=== PATIENT | male | born 1940 | race Caucasian/White ===

== ENCOUNTER 2024-06-14 05:50 | Outpatient (REF) | payer MEDICARE, SELFPAY ==
[2024-06-14 05:57] LABS: MANUAL DIFF FLAG NO
--- OUTSIDE RECORDS SUMMARY | 2024-06-14 06:05 | XMS_ITS | Encounter Summary ---
Author Organization [facility] Address [address] [place] [address] Care Team Providers Care Ear Nose Throat Physician Name Role Phone Demetria Dickinson MD Primary Care Provider Encounter Details Date Type Department Care Team (Late st Contact Info) Description 06/10/2024 Lab Requisition [facility] - Main Lab [address] [facility] [place] [address] Garima Haddad MD [address] [address] Pneumonia, unspecified organism; Urinary tract infection, site not specified Social History Tobacco Use Types Packs/Day Years Used Date Smoking Tobacco: Former Cigarettes Q uit: 03/10/1963 Smokeless Tobacco: Never Alcohol Use Standard Drinks/Week Comments Not Currently 0 (1 standard drink = 0.6 oz pur e alcohol) Sex and Gender Information Value Date Recorded Sex Assigned at Not on file Legal Sex Male 3:30 AM EST Gender Identity Not on file Sexual Orientation Not on file documented as of this encounter Plan of Treatment Not on file documented as of this encounter Procedures Procedure Name Priority Date/Time Associated Diagnosis Comments COMPLETE BLOOD COUNT Routine 06/10/2024 6:45 AM EDT Pneumonia, unspecified organism Urinary tract infection, site not specified BASIC METABOLIC PANEL Routine 06/10/2024 6:45 AM EDT Pneumonia, unspecified organism Urinary tract infection, site not specified documented in this encounter Results * (ABNORMAL) Basic metabolic panel (06/10/2024 6:45 AM EDT) Sodium 145 133 - 145 mmol/L LAB CHEMISTRY METHOD 06/10/2024 9:15 AM [facility] Potassium 4.3 3.5 - 5.5 mmol/L LAB CHEMISTRY METHOD 06/10/2024 9:15 AM [facility] Chloride 110 96 - 110 mmol/L LAB CHEMISTRY METHOD 06/10/2024 9:15 AM [facility] CO2 29 21 - 32 mmol/L LAB CHEMISTRY METHOD 06/10/2024 9:15 AM [facility] Anion Gap 6 3 - 11 LAB CHEMISTRY METHOD 06/10/2024 9:15 AM [facility] Glucose 83 70 - 100 mg/dL LAB CHEMISTRY METHOD 06/10/2024 9:15 AM [facility] BUN 27(H) 5 - 25 mg/dL LAB CHEMISTRY METHOD 06/10/2024 9:15 AM [facility] Creatinine 1.41(H) 0.70 - 1.30 mg/dL LAB CHEMISTRY METHOD 06/10/2024 9:15 AM [facility] eGFR 49(L) >=60 mL/min/1. 73m2 LAB CHEMISTRY METHOD 06/10/2024 9:15 AM [facility] Comment:Calculation based on the??Chronic Kidney Disease Epidemiology Collaboration (CKD-EPI) equation refit??without adjustment for race. BUN/Creatinine Ratio 19.1 LAB CHEMISTRY METHOD 06/10/2024 9:15 AM [facility] Calcium 8.8 8.5 - 10.5 mg/dL LAB CHEMISTRY METHOD 06/10/2024 9:15 AM [facility] Blood Venous blood specimen / Unknown Venipuncture / Unknown 06/10/2024 6:45 AM EDT 06/10/2024 8:26 AM EDT Garima Haddad MD LAB BLOOD ORDERABLES Fin al Result [facility] [address] [place] [address], * (ABNORMAL) Complete blood count (06/10/2024 6:45 AM EDT) WBC 9.7 4.8 - 10.8 K/mcL LAB HEMETOLOGY METHOD 06/10/2024 8:49 AM EDT [facility] RBC 3.90(L) 4.50 - 5.50 M/mcL LAB HEMETOLOGY METHOD 06/10/2024 8:49 AM EDT [facility] Hemoglobin 12.0(L) 13.5 - 17.5 g/dL LAB [facility] Hematocrit 37.6(L) 42.0 - 54.0 % LAB HEMETOLOGY METHOD 06/10/2024 8:49 AM EDT [facility] MCV 95.9 79.0 - 98.0 FL LAB HEMETOLOGY METHOD 06/10/2024 8:49 AM EDT [facility] MCH 30.6 27.0 - 32.0 pcg LAB HEMETOLOGY METHOD 06/10/2024 8:49 AM EDT [facility] MCHC 31.9(L) 32.0 - 37.0 g/dL LAB HEMETOLOGY METHOD 06/10/2024 8:49 AM EDT [facility] RDW 14.1 11.0 - 15.0 % LAB HEMETOLOGY METHOD 06/10/2024 8:49 AM EDT [facility] Platelets 350 130 - 400 K/mcL LAB [facility] MPV 10.3 7.0 - 11.0 FL LAB HEMETOLOGY METHOD 06/10/2024 8:49 AM EDT [facility] NRBC 0.0 <1.0 % LAB HEMETOLOGY METHOD 06/10/2024 8:49 AM EDT [facility] NRBC Absolute 0.00 <0.10 K/mcL LAB HEMETOLOGY METHOD 06/10/2024 8:49 AM EDT [facility] Blood Venous blood specimen / Unknown Venipuncture / Unknown 06/10/2024 6:45 AM EDT 06/10/2024 8:26 AM EDT us Garima Haddad MD LAB BLOOD ORDERABLES Fin al Result [facility] [address] [place] [address], documented in this encounter Visit Diagnoses Diagnosis Pneumonia, unspecified organism Urinary tract infection, site not specified documented in this encounter Care Teams Ear Nose Throat Physician Relationship Specialty Start Date End Date Demetria Dickinson MD [address] [place] [id number] PCP - General Internal Medicine 05/07/21 documented as of this encounter
--- OUTSIDE RECORDS SUMMARY | 2024-06-14 06:05 | XMS_ITS | Encounter Summary ---
Author Organization [facility] Address [address] [place] [phone] Care Team Providers Care Him Tech Name Role Phone Demetria Dickinson MD Primary Care Provider Encounter Details Date Type Department Care Team (Late st Contact Info) Description 06/12/[address] [facility] - Main Lab [address] [facility] [place] [address] Garima Haddad MD [address] [address] Urinary tract infection, site not specified Social [...] as of this encounter Plan of Treatment Scheduled Orders Name Type Priority Associated Diagnoses Orde r Schedule Complete blood count Lab Routine Urinary tract infection, site not specified Ordered: 06/12/2024 Basic metabolic panel Lab Routine Urinary tract infection, site not specified Ordered: 06/12/2024 documented as of this encounter Visit Diagnoses Diagnosis Urinary tract infection, site not specified documented in this encounter Care Teams Him Tech Relationship Specialty Start Date End Date Demetria Dickinson MD [address] [place] [address] [address] [place], [place] [id number] PCP - General Internal Medicine 05/07/21 documented as of this encounter
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
[2024-06-14 06:49] LABS: Basophils Absolute Auto 0.1 X10*3/uL (0.0-0.2); Eosinophils Absolute Auto 0.6 X10*3/uL (0.0-0.4); Eosinophils Percent Auto 6.3 % (0-4); Hematocrit 39.2 % (42.0-52.0); Hemoglobin 12.7 g/dl (14.0-18.0); Imm Gran Abs Auto 0.06 X10*3/uL (0.00-0.03); Imm Gran Pct Auto 0.7 % (0.0-0.4); Lymphocytes Absolute Auto 1.2 X10*3/uL (1.2-4.9); Lymphocytes Percent Auto 13.3 % (20-40); Mean Corpuscular HGB Conc 32.4 g/dl (31.0-36.0); Mean Corpuscular Volume 92.5 fL (80.0-98.0); Mean Platelet Volume 10.4 fL (9.4-12.4); Monocytes Absolute Auto 1.2 X10*3/uL (0.1-1.2); Monocytes Percent Auto 13.9 % (2-11); Neutrophils Absolute Auto 5.7 x10*3/uL (2.0-8.3); Neutrophils Percent Auto 64.8 % (45-73); Platelet Count 315 X10*3/uL (160-400); Red Blood Count 4.24 X10*6/uL (4.60-5.80); White Blood Count 8.8 X10*3/uL (4.8-10.8)
[2024-06-14 06:53] LABS: Alanine Aminotransferase < 6 U/L (0-40); Albumin Level 3.1 g/dL (3.5-5.0); Alkaline Phosphatase 97 U/L (39-117); Anion Gap 12 (12-20); Aspartate Amino Transferase 26 U/L (5-37); Bilirubin Total 0.8 mg/dL (0.0-1.0); Blood Urea Nitrogen 21 mg/dL (9-16); Calcium 8.3 mg/dL (8.4-10.2); Carbon Dioxide 23 mmol/L (22-29); Chloride 111 mmol/L (96-108); Estimated Glomerular Filt Rate 48; Glucose Random 73 mg/dL (60-115); Potassium 3.4 mmol/L (3.3-5.1); Sodium 143 mmol/L (135-145); Total Protein 6.2 g/dL (6.5-8.0)
== END 2024-06-14 05:51 | disposition home or self-care (01) ==
LOC: HO.MMNH1L 05:50
PROVIDERS: Visit Provider Family Medicine
DX: I10 Essential (primary) hypertension (principal)
CPT/HCPCS: 36415; 80053; 85025

== ENCOUNTER 2024-06-21 05:44 | Outpatient (REF) | payer MEDICARE, SELFPAY ==
[2024-06-21 05:37] LABS: MANUAL DIFF FLAG NO
--- OUTSIDE RECORDS SUMMARY | 2024-06-21 05:51 | XMS_ITS | Clinical Summary ---
Author Organization [address] Address [address] [place] [phone] Phone Care Team Providers Care Floorleader Name Role Phone Demetria Dickinson MD Primary [...] kidney disease) stage 3, GFR 30-59 ml/min [place] [place] [facility] V28) 04/05/2024 Dementia [place] [place] [facility] [place] 04/05/2024 Parkinson's disease [place] [place], [facility] [place] 0 04/05/2024 Seizure [place] [place] [facility] [place] 04/05/2024 Overview (04/05/2024): Per d/c summary/[facility] 05/18/2021. CHF (congestive heart failure) [place] [place], [facility] V28) 05/30/2021 Overview (04/05/2024): New onset, acute on chronic. [facility] admission 05/14/2021. Hypertensive urgency also documented. Anemia, unspecified 09/25/2020 Thrombocytosis 10/23/2018 Overview (04/05/2024): 09/25- mild Depression 09/01/2018 PVD (peripheral vascular disease) [place] [place] 05/14/2018 Nonallopathic lesion of sacral region 05/09/2014 Sprain of sacroiliac ligament 05/09/2014 Impaired fasting glucose 01/08/2014 Gout 08/24/2012 Atrial fibrillation [place] [place], [facility] [place] 0 08/06/2012 Overview (04/05/2024): [place]. Noted 08/06/2012: Chronic [...] Department Care Team Description 06/12/2024 Lab Requisition [facility] - Main Lab [address] [facility] [place] [address] Garima Haddad MD Urinary tract infection, site not specified 06/10/2024 Lab Requisition [facility] - Main Lab [address] [place] [address] Garima Haddad MD Pneumonia, unspecified organism; Urinary tract infection, site not specified from Last 3 Months Immunizations Name Administration Dates Next Due Influenza trivalent, 0.5mL ( Fluzone High-dose) 65yo and older 12/18/2020,11/17/2018,01/02/2018,2016 Moderna SARS-CoV-2 COVID-19, mRNA, LNP-S, preservative free 05/28/2020,05/07/2020 Zoster recombinant (Shingrix ) 19yo and older 03/13/2020,01/19/2020 Surgical History Surgery Date Site/Laterality Comments APPENDECTOMY PROCEDURE: MD APPENDECTOMY TURP / TRANSURETHRAL INCISIO N / DRAINAGE PROSTATE PROCEDURE: HISTORICAL TURP CHOLECYSTECTOMY PROCEDURE: MD LAPAROSCOPY SURG CHOLECYSTECTOMY COLONOSCOPY PROCEDURE: HISTORICAL COLONOSCOPY; COMMENT: [place]/2016[place] [facility]. Tubular adenoma. Repeat 5 yrs. Pt declined colonoscopy 10/06/14. 07/24 colonoscopy (abnormal CT) neg. Repeat 10 yrs ESOPHAGOGASTRODUODENOSCOPY PROCEDURE: MD ESOPHAGOGASTRODUODENOSCOPY TRANSORAL DIAGNOSTIC; COMMENT: 07/24. Abnormal CT. [...] unspecified 09/25/2020 DX:Anemia, u nspecified Atrial fibrillation (CMS/HCC V24, CMS/HCC V28) 08/06/2012 DX:Atrial fibrillation (HCC) ; COMMENT: [place]. Noted 08/06/2012: Chronic atrial fibrillation, pt is asymptomatic. He is rate controlled and anticoagulated with Pradaxa 150 mg twice a day. He denies any bleeding issues. Will continue his current medications at this time. BPH (benign prostatic hyperplasia) 08/06/2012 DX:BPH (benign prostatic hyperplasia); COMMENT: [place] TURP History of stroke 08/06/2012 DX:History of stroke; COMMENT: Noted 08/06/2012: Left weakness. Mostly resolved, may have mild left leg weakness. Right field cut. Neurology ([place]) prophylactic Keppra. 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 Dysarthria and facial droop Depression 09/01/2018 DX:Depression PVD (peripheral vascular dis ease) [place] [place] 05/14/2018 DX:PVD (peripheral vascular disease) ([facility]) Sprain of sacroiliac ligament 05/09/2014 DX :Sprain of sacroiliac ligament Thrombocytosis 10/23/2018 DX:Thrombocytosi s; COMMENT: 09/25- mild Gout 08/24/2012 DX:Gout CKD (chronic kidney disease) stage 3, GFR 30-59 ml/min ([facility] V24, [facility] V28) DX:CKD (chronic kidney disea se) stage 3, GFR 30-59 ml/min ([facility]) Dementia [place] [place], [facility] [place]) DX:Dementia ([facility]) Seizure [place] [place] [facility] [place] DX:Seizure ([facility]); COMMENT: Per d/c summary/[facility] 05/18/2021. Parkinson's disease ([facility] [place], [facility] [place]) DX:Parkinson's disease ([facility]) Choking DX:Choking CHF (congestive heart failur e) ([facility] [place], [facility] [place] DX:CHF (congestive heart fa ilure) ([facility]) Family History Medical History Relation [...] Annual BMP Blood Test 06/10/2025 06/10/2024, 03/31/2024, 03/31/2024, Additional history exists Cholesterol Screening (Lipid Panel) 09/25/2025 09/25/2020 Zoster [...] age to complete this topic Meningococcal B Vaccine Aged Out No l onger eligible based on patient's age to complete [...] K/mcL LAB HEMETOLOGY METHOD 06/10/2024 8:49 AM [facility] RBC 3.90(L) 4.50 - 5.50 M/mcL LAB HEMETOLOGY METHOD 06/10/2024 8:49 AM [facility] Hemoglobin 12.0(L) 13.5 - 17.5 g/dL LAB HEMETOLOGY METHOD 06/10/2024 8:49 AM [facility] LAB Hematocrit 37.6(L) 42.0 - 54.0 % LAB HEMETOLOGY METHOD 06/10/2024 8:49 AM [facility] MCV 95.9 79.0 - 98.0 FL LAB HEMETOLOGY METHOD 06/10/2024 8:49 AM [facility] MCH 30.6 27.0 - 32.0 pcg LAB HEMETOLOGY METHOD 06/10/2024 8:49 AM EDT [facility] MCHC 31.9(L) 32.0 - 37.0 g/dL LAB HEMETOLOGY METHOD 06/10/2024 8:49 AM EDT [facility] RDW 14.1 11.0 - 15.0 % LAB HEMETOLOGY METHOD 06/10/2024 8:49 AM EDT [facility] Platelets 350 130 - 400 K/mcL LAB HEMETOLOGY METHOD 06/10/2024 8:49 AM EDT [facility] MPV 10.3 7.0 - 11.0 FL LAB HEMETOLOGY METHOD 06/10/2024 8:49 AM EDT [facility] NRBC 0.0 <1.0 % LAB HEMETOLOGY METHOD 06/10/2024 8:49 AM EDT [facility] LAB NRBC Absolute 0.00 <0.10 K/mcL LAB HEMETOLOGY METHOD 06/10/2024 8:49 AM EDT [facility] Blood Venous blood specimen / Unknown Venipuncture / Unknown 06/10/2024 6:45 AM EDT 06/10/2024 8:26 AM EDT us Garima Haddad MD LAB BLOOD ORDERABLES Fin al Result [facility] [address] [place] [address], * (ABNORMAL) Basic metabolic panel (06/10/2024 6:45 AM EDT) Sodium 145 133 - 145 mmol/L LAB CHEMISTRY METHOD 06/10/2024 9:15 AM EDT [facility] Potassium 4.3 3.5 - 5.5 mmol/L LAB CHEMISTRY METHOD 06/10/2024 9:15 AM EDT [facility] Chloride 110 96 - 110 mmol/L LAB CHEMISTRY METHOD 06/10/2024 9:15 AM [facility] CO2 29 21 - 32 mmol/L LAB CHEMISTRY METHOD 06/10/2024 9:15 AM [facility] Anion Gap 6 3 - 11 LAB CHEMISTRY METHOD 06/10/2024 9:15 AM [facility] Glucose 83 70 - 100 mg/dL LAB CHEMISTRY METHOD 06/10/2024 9:15 AM [facility] BUN 27(H) 5 - 25 mg/dL LAB CHEMISTRY METHOD 06/10/2024 9:15 AM [facility] Creatinine 1.41(H) 0.70 - 1.30 mg/dL LAB CHEMISTRY METHOD 06/10/2024 9:15 AM [facility] eGFR 49(L) >=60 mL/min/1. 73m2 LAB CHEMISTRY METHOD 06/10/2024 9:15 AM [facility] Comment:Calculation based on the??Chronic Kidney Disease Epidemiology Collaboration (CKD-EPI) equation refit??without adjustment for race. BUN/Creatinine Ratio 19.1 LAB CHEMISTRY METHOD 06/10/2024 9:15 AM [facility] Calcium 8.8 8.5 - 10.5 mg/dL LAB CHEMISTRY METHOD 06/10/2024 9:15 AM [facility] Blood Venous blood specimen / Unknown Venipuncture / Unknown 06/10/2024 6:45 AM EDT 06/10/2024 8:26 AM EDT us Garima Haddad MD LAB BLOOD ORDERABLES Fin al Result [facility] [address] [place] [address], * (ABNORMAL) Lipid panel (09/25/2020) LDL/HDL Ratio 3 0 - 4 Triglycerides 112 0 - 150 mg/dL Cholesterol 91 0 - 200 mg/dL HDL 27(A) >=40 mg/dL LDL Cholesterol 42 0 - 100 mg/dL Blood Venous blood specimen / Unknown us Historical Provider LAB BLOOD ORDERABLES Latonya l Result from Last 3 Months or Most Recently Relevant to Health Maintenance Insurance MEDICARE [facility] Care Teams Floorleader Relationship Specialty Start Date End Date Demetria Dickinson MD [address] [place] [phone] PCP - General Internal Medicine 05/07/21
--- OUTSIDE RECORDS SUMMARY | 2024-06-21 05:52 | XMS_ITS | Encounter Summary ---
Author Organization [facility] Address [address] [place] [address] Care Team Providers Care All Source Intelligence Technician Name Role Phone Demetria Dickinson MD Primary Care Provider Encounter Details Date Type Department Care Team (Late st Contact Info) Description 06/10/2024 Lab Requisition [facility] - Main Lab 299 [facility] [place] [address] Garima Haddad MD [address] [address] Pneumonia, unspecified organism; Urinary tract infection, site [...] mmol/L LAB CHEMISTRY METHOD 06/10/2024 9:[address] [facility] Potassium 4.3 3.5 - 5.5 mmol/L LAB CHEMISTRY METHOD 06/10/2024 9:[address] [facility] Chloride 110 96 - 110 mmol/L LAB CHEMISTRY METHOD 06/10/2024 9:[address] [facility] CO2 29 21 - 32 mmol/L LAB CHEMISTRY METHOD 06/10/2024 9:[address] [facility] Anion Gap 6 3 - 11 LAB CHEMISTRY METHOD 06/10/2024 9:[address] [facility] Glucose 83 70 - 100 mg/dL LAB CHEMISTRY METHOD 06/10/2024 9:[address] [facility] BUN 27(H) 5 - 25 mg/dL LAB CHEMISTRY METHOD 06/10/2024 9:[address] [facility] Creatinine 1.41(H) 0.70 - 1.30 mg/dL LAB CHEMISTRY METHOD 06/10/2024 9:[address] [facility] eGFR 49(L) >=60 mL/min/1. 73m2 LAB CHEMISTRY METHOD 06/10/2024 9:[address] [facility] Comment:Calculation based on the??Chronic Kidney Disease Epidemiology Collaboration (CKD-EPI) equation refit??without adjustment for race. BUN/Creatinine Ratio 19.1 LAB CHEMISTRY METHOD 06/10/2024 9:[address] [facility] Calcium 8.8 8.5 - 10.5 mg/dL LAB CHEMISTRY METHOD 06/10/2024 9:[address] [facility] Blood Venous blood specimen / Unknown Venipuncture / Unknown 06/10/2024 6:45 AM EDT 06/10/2024 8:26 AM EDT Garima Haddad MD LAB BLOOD ORDERABLES Fin al Result [facility] [address] [place] [address], * (ABNORMAL) Complete blood count (06/10/2024 6:45 AM EDT) WBC 9.7 4.8 - 10.8 K/mcL LAB HEMETOLOGY METHOD 06/10/2024 8:49 AM EDT [facility] RBC 3.90(L) 4.50 - 5.50 M/mcL LAB HEMETOLOGY METHOD 06/10/2024 8:49 AM EDT [facility] Hemoglobin 12.0(L) 13.5 - 17.5 g/dL LAB [facility] Hematocrit 37.6(L) 42.0 - 54.0 % LAB HEMETOLOGY METHOD 06/10/2024 8:49 AM EDT [facility] MCV 95.9 79.0 - 98.0 FL LAB HEMETOLOGY METHOD 06/10/2024 8:49 AM EDT [facility] MCH 30.6 27.0 - 32.0 pcg LAB HEMETOLOGY METHOD 06/10/2024 8:49 AM EDT [facility] MCHC 31.9(L) 32.0 - 37.0 g/dL LAB HEMETOLOGY METHOD 06/10/2024 8:49 AM EDT [facility] RDW 14.1 11.0 - 15.0 % LAB HEMETOLOGY METHOD 06/10/2024 8:49 AM EDT [facility] Platelets 350 130 - 400 K/mcL LAB [facility] MPV 10.3 7.0 - 11.0 FL LAB HEMETOLOGY METHOD 06/10/2024 8:49 AM EDT [facility] NRBC 0.0 <1.0 % LAB HEMETOLOGY METHOD 06/10/2024 8:49 AM EDT [facility] NRBC Absolute 0.00 <0.10 K/mcL LAB HEMETOLOGY METHOD 06/10/2024 8:49 AM EDT [facility] Blood Venous blood specimen / Unknown Venipuncture / Unknown 06/10/2024 6:45 AM EDT 06/10/2024 8:26 AM EDT us Garima Haddad MD LAB BLOOD ORDERABLES Fin al Result [facility] [address] [place] [address], documented in this encounter Visit Diagnoses Diagnosis Pneumonia, unspecified organism Urinary tract infection, site not specified documented in this encounter Care Teams All Source Intelligence Technician Relationship Specialty Start Date End Date Demetria Dickinson MD [address] [place] [id number] PCP - General Internal Medicine 05/07/21 documented as of this encounter
--- OUTSIDE RECORDS SUMMARY | 2024-06-21 05:52 | XMS_ITS | Clinical Summary ---
Author Organization [facility] Address [address] [place] [phone] Phone Care Team Providers Care Human Factors Engineer Name Role Phone Julio Villafuerte MD Primary Care Provider [phone] Allergies Active Allergy Reactions Criticality Noted Date [...] Orders Only [facility] [address] [address] Tomas Joseph MD Stage 3b chronic kidney disease (HCC); Renal scarring; Proteinuria, not otherwise specified; Hypertension; Gout, not otherwise specified; History of subdural hematoma; Dyslipidemia; Congestive heart failure, not otherwise specified (HCC) 04/07/2024 8:40 AM EST Office Visit [facility] [address] [address] Tomas Joseph MD Stage 3b chronic kidney disease (HCC) (Primary Dx); Renal scarring; Proteinuria, not otherwise specified; Hypertension; Gout, not otherwise specified; History of subdural hematoma; Dyslipidemia; Congestive heart failure, not otherwise specified (HCC) 04/05/2024 Orders Only [facility] [address] [address] Tomas Joseph MD 03/31/2024 Orders Only [facility] [address] [address] Tomas Joseph MD from Last 3 Months [...] Visit [facility] [address] [address] Tomas Joseph MD [address] [address] Health Maintenance Due Date Last Done Comments Pneumococcal Vaccine: 50+ Years (1 of 2 - PCV) 1959 Influenza Vaccine (Season Ended) 2024 12/18/2020, 11/17/2018, [...] Creatinine, Ur 87.3 Not Estab. mg/dL [facility] Protein, Ur 28.2 Not Estab. mg/dL [facility] Urine Protein/Creati nine Ratio 323(H) 0 - 200 mg/g creat [facility] 04/05/2024 3:00 PM EST 04/05/2024 Tomas Joseph MD LAB URINE ORDERABLES Final Re sult Performing Organization Address City/[facility]/ZIP Co de Phone Number [facility] [address] [place] [address] * Vitamin D 25 Hydroxy (03/31/2024 11:53 AM EST) Vitamin D, 25-OH, Total 81.5 30.0 - 100.0 ng/mL [facility] Comment: Vitamin D deficiency has been defined by the [place] of Medicine and an Endocrine Society practice guideline as a level of serum 25-OH vitamin D less than 20 ng/mL (1,2). The Endocrine Society went on to further define vitamin D insufficiency as a level between 21 and 29 ng/mL (2). 1. IOM ([place] of Medicine). 2010. Dietary reference ?? intakes for calcium and D. [place]: The ?? National Academies Press. 2. Denys MF, Radha NC, Tab TAM, et al. ?? Evaluation, treatment, and prevention of vitamin D ?? deficiency: an Endocrine Society clinical practice ?? guideline. JCEM. 2010; 96(7):1911-30. 03/31/2024 11:5 3 AM EST 03/31/2024 Tomas Joseph MD LAB BLOOD ORDERABLES Final Re sult [facility] [address] [place] [address] * CBC and Differential (03/31/2024 11:53 AM EST) WBC 8.8 3.4 - 10.8 x10E3/uL [facility] RBC 4.83 4.14 - 5.80 x10E6/uL [facility] Hemoglobin 14.8 13.0 - 17.7 g/dL [facility] Hematocrit 44.7 37.5 - 51.0 % [facility] MCV 93 79 - 97 fL [facility] MCH 30.6 26.6 - 33.0 pg [facility] MCHC 33.1 31.5 - 35.7 g/dL [facility] RDW 13.4 11.6 - 15.4 % [facility] Platelets 279 150 - 450 x10E3/uL [facility] Neutrophils Relative 71 Not Estab. % [facility] Lymphocytes Relative 12 Not Estab. % [facility] Monocytes 10 Not Estab. % [facility] Eosinophils Relative 5 Not Estab. % [facility] Basophils Relative 1 Not Estab. % [facility] Neutrophils Absolute 6.3 1.4 - 7.0 x10E3/uL [facility] Lymphocytes Absolute 1.0 0.7 - 3.1 x10E3/uL [facility] Monocytes Absolute 0.9 0.1 - 0.9 x10E3/uL [facility] Eosinophils Absolute 0.4 0.0 - 0.4 x10E3/uL [facility] Basophils Absolute 0.1 0.0 - 0.2 x10E3/uL [facility] Immature Granulocytes 1 Not Estab. % [facility] Immature Grans (Absolute) 0.1 0.0 - 0.1 x10E3/uL [facility] 03/31/2024 11:5 3 AM EST 03/31/2024 Narrative [facility] - 04/01/2024 2:06 PM EST Specimen Comment: A courtesy copy of this report has been sent to [phone], [phone] Specimen Comment: [id number] us Tomas Joseph MD LAB BLOOD ORDERABLES Final Re sult Performing Organization Address [facility] Co de Phone Number [facility] [address] [place] [address] * (ABNORMAL) Uric Acid (03/31/2024 11:53 AM EST) Uric Acid 3.4(L) 3.8 - 8.4 mg/dL [facility] Comment:Therapeutic target f or gout patients: <6.0 03/31/2024 11:5 3 AM EST 03/31/2024 us Tomas Joseph MD LAB BLOOD ORDERABLES Final Re sult Performing Organization Address City/[facility] Co de Phone Number [facility] [address] [place] [address] * Phosphorus (03/31/2024 11:53 AM EST) Phosphorus 3.2 2.8 - 4.1 mg/dL [facility] 03/31/2024 11:5 3 AM EST 03/31/2024 us Tomas Joseph MD LAB BLOOD ORDERABLES Final Re sult Performing Organization Address City/[facility]/ZIP Co de Phone Number [facility] [address] [place] [address] * (ABNORMAL) PTH, Intact (03/31/2024 11:53 AM EST) PTH 74(H) 15 - 65 pg/mL [facility] 03/31/2024 11:5 3 AM EST 03/31/2024 Tomas Joseph MD LAB BLOOD ORDERABLES Final Re sult Performing Organization Address [facility]/ZIP Co de Phone Number [facility] [place] [address] [place] [address] * Magnesium (03/31/2024 11:53 AM EST) Pathologist [facility] Magnesium 2.3 1.6 - 2.3 mg/dL [facility] 03/31/2024 11:5 3 AM EST 03/31/2024 Tomas Joseph MD LAB BLOOD ORDERABLES Final Re sult Performing Organization Address [facility] Co de Phone Number [facility] [place] [address] [place] [address] * (ABNORMAL) Comprehensive Metabolic Panel (03/31/2024 11:53 AM EST) Pathologist [facility] Glucose 96 70 - 99 mg/dL [facility] BUN 22 8 - 27 mg/dL [facility] Creatinine 1.46(H) 0.76 - 1.27 mg/dL [facility] eGFR CKD-EPI CR 2020 47(L) >59 mL/min/1.7 3 [facility] BUN/Creatinine Ratio 15 10 - 24 [facility] Sodium 143 134 - 144 mmol/L [facility] Potassium 4.7 3.5 - 5.2 mmol/L [facility] Chloride 109(H) 96 - 106 mmol/L [facility] Bicarbonate (CO2) 14(L) 20 - 29 mmol/L [facility] Comment:Specimen quantity in sufficient for verification by repeat analysis. Calcium 11.4(H) 8.6 - 10.2 mg/dL [facility] Total Protein 7.0 6.0 - 8.5 g/dL [facility] Albumin 4.2 3.7 - 4.7 g/dL [facility] Globulin 2.8 1.5 - 4.5 g/dL [facility] Total Bilirubin 0.6 0.0 - 1.2 mg/dL [facility] Alkaline Phosphatase 99 44 - 121 IU/L [facility] AST (SGOT) 27 0 - 40 IU/L [facility] ALT (SGPT) 10 0 - 44 IU/L [facility] 03/31/2024 11:5 3 AM EST 03/31/2024 us Tomas Joseph MD LAB BLOOD ORDERABLES Final Re sult [facility] [address] [place] [address] from Last 3 Months Insurance Medicare [facility] Medicare [facility] Care Teams Human Factors Engineer Relationship Specialty Start Date End Date Julio Villafuerte MD [address] [place] [address], [address] [place], [place] PCP - General Internal Medicine 04/07/24
--- OUTSIDE RECORDS SUMMARY | 2024-06-21 05:52 | XMS_ITS | Encounter Summary ---
Author Organization [facility] Address [address] [place] [phone] Care Team Providers Care Contour Grinder Name Role Phone Demetria Dickinson MD Primary Care Provider Encounter Details Date Type Department Care Team (Late st Contact Info) Description 06/12/2024 Lab Requisition [facility] - Main Lab 299 [facility] [place] [address] Garima Haddad MD [address] [address] Urinary tract infection, site not specified Social [...] on file documented as of this encounter Visit Diagnoses Diagnosis Urinary tract infection, site not specified documented in this encounter Care Teams Contour Grinder Relationship Specialty Start Date End Date Demetria Dickinson MD [address] [place] [address] PCP - General Internal Medicine 05/07/21 documented as of this encounter
[2024-06-21 06:20] LABS: Basophils Absolute Auto 0.1 X10*3/uL (0.0-0.2); Basophils Percent Auto 0.7 % (0-2); Eosinophils Absolute Auto 0.6 X10*3/uL (0.0-0.4); Eosinophils Percent Auto 4.8 % (0-4); Hematocrit 39.9 % (42.0-52.0); Imm Gran Abs Auto 0.09 X10*3/uL (0.00-0.03); Imm Gran Pct Auto 0.8 % (0.0-0.4); Lymphocytes Absolute Auto 1.3 X10*3/uL (1.2-4.9); Lymphocytes Percent Auto 10.9 % (20-40); Mean Corpuscular HGB Conc 32.6 g/dl (31.0-36.0); Mean Corpuscular Hemoglobin 30.5 pg (27.0-33.0); Mean Corpuscular Volume 93.7 fL (80.0-98.0); Mean Platelet Volume 11.2 fL (9.4-12.4); Monocytes Absolute Auto 1.3 X10*3/uL (0.1-1.2); Monocytes Percent Auto 11.1 % (2-11); Neutrophils Absolute Auto 8.3 x10*3/uL (2.0-8.3); Neutrophils Percent Auto 71.7 % (45-73); Platelet Count 220 X10*3/uL (160-400); Red Blood Count 4.26 X10*6/uL (4.60-5.80); Red Cell Distribution Width 13.9 % (11.0-16.0); White Blood Count 11.6 X10*3/uL (4.8-10.8)
[2024-06-21 06:40] LABS: Anion Gap 13 (12-20); Blood Urea Nitrogen 13 mg/dL (9-16); Calcium 8.5 mg/dL (8.4-10.2); Carbon Dioxide 22 mmol/L (22-29); Chloride 108 mmol/L (96-108); Estimated Glomerular Filt Rate > 60; Glucose Random 86 mg/dL (60-115); Potassium 3.4 mmol/L (3.3-5.1); Sodium 140 mmol/L (135-145)
== END 2024-06-21 05:45 | disposition home or self-care (01) ==
LOC: HO.MMNH1L 05:44
PROVIDERS: Visit Provider Family Medicine
DX: I10 Essential (primary) hypertension (principal)
CPT/HCPCS: 36415; 80048; 85025

== ENCOUNTER 2024-06-24 10:54 | Outpatient (REF) | payer MEDICARE, SELFPAY ==
[2024-06-24 10:57] LABS: MANUAL DIFF FLAG NO
[2024-06-24 11:09] LABS: Basophils Absolute Auto 0.1 X10*3/uL (0.0-0.2); Eosinophils Absolute Auto 0.4 X10*3/uL (0.0-0.4); Eosinophils Percent Auto 4.6 % (0-4); Hematocrit 37.7 % (42.0-52.0); Hemoglobin 12.5 g/dl (14.0-18.0); Imm Gran Abs Auto 0.05 X10*3/uL (0.00-0.03); Imm Gran Pct Auto 0.6 % (0.0-0.4); Lymphocytes Absolute Auto 0.8 X10*3/uL (1.2-4.9); Mean Corpuscular HGB Conc 33.2 g/dl (31.0-36.0); Mean Corpuscular Hemoglobin 30.5 pg (27.0-33.0); Mean Platelet Volume 10.6 fL (9.4-12.4); Monocytes Absolute Auto 1.2 X10*3/uL (0.1-1.2); Monocytes Percent Auto 14.3 % (2-11); Neutrophils Absolute Auto 5.6 x10*3/uL (2.0-8.3); Neutrophils Percent Auto 69.5 % (45-73); Platelet Count 187 X10*3/uL (160-400); Red Cell Distribution Width 14.3 % (11.0-16.0)
[2024-06-24 11:29] LABS: Alanine Aminotransferase < 6 U/L (0-40); Albumin Level 2.9 g/dL (3.5-5.0); Alkaline Phosphatase 85 U/L (39-117); Anion Gap 10 (12-20); Aspartate Amino Transferase 21 U/L (5-37); Bilirubin Total 0.8 mg/dL (0.0-1.0); Blood Urea Nitrogen 19 mg/dL (9-16); Calcium 8.5 mg/dL (8.4-10.2); Carbon Dioxide 24 mmol/L (22-29); Chloride 109 mmol/L (96-108); Estimated Glomerular Filt Rate 52; Glucose Random 115 mg/dL (60-115); Potassium 3.6 mmol/L (3.3-5.1); Sodium 139 mmol/L (135-145)
[2024-06-24 12:38] LABS: Appearance Urine Cloudy; Color Urine Dark Yellow; Glucose Urine UA Negative (Negative); Leukocyte Esterase Urine Moderate (2+) (Negative); Nitrite Urine Positive (Negative); PH 5.5 (5.0-9.0); Specific Gravity - Urine 1.015 (1.005-1.025); UMIC TRIGGER UA YES; Urine Blood Large (3+) (Negative); Urine Ketones Negative (Negative); Urine Protein 100 (2+) mg/dL (Neg-Trace)
[2024-06-24 12:59] LABS: Bacteria Urine 2+ (None Seen); Hyaline Casts Urine 0-2 /LPF (0-2); Squamous Epithelial Cell Urine 0-2 /HPF (0-2); WBC Urine >50 /HPF (0-5)
--- OUTSIDE RECORDS SUMMARY | 2024-06-24 13:20 | XMS_ITS | Clinical Summary ---
Author Organization [facility] Address [address] [place] [phone] Phone Care Team Providers Care Scrap Crusher Name Role Phone Julio Villafuerte MD Primary Care Provider [phone] Allergies Active Allergy Reactions Criticality Noted Date [...] Orders Only [facility] [address] [address] Tomas Joseph MD Stage 3b chronic kidney disease (HCC); Renal scarring; Proteinuria, not otherwise specified; Hypertension; Gout, not otherwise specified; History of subdural hematoma; Dyslipidemia; Congestive heart failure, not otherwise specified (HCC) 04/07/2024 8:40 AM EST Office Visit [facility] [address] [address] Tomas Joseph MD Stage 3b chronic kidney disease (HCC) (Primary Dx); Renal scarring; Proteinuria, not otherwise specified; Hypertension; Gout, not otherwise specified; History of subdural hematoma; Dyslipidemia; Congestive heart failure, not otherwise specified (HCC) 04/05/2024 Orders Only [facility] [address] [address] Tomas Joseph MD 03/31/2024 Orders Only [facility] [address] [address] Tomas Joseph MD from Last 3 Months [...] Visit [facility] [address] [address] Tomas Joseph MD [address] [address] Health Maintenance Due Date Last [...] Creatinine, Ur 87.3 Not Estab. mg/dL [facility] Protein, Ur 28.2 Not Estab. mg/dL [facility] Urine Protein/Creati nine Ratio 323(H) 0 - 200 mg/g creat [facility] 04/05/2024 3:00 PM EST 04/05/2024 Tomas Joseph MD LAB URINE ORDERABLES Final Re sult Performing Organization Address City/[facility]/ZIP Co de Phone Number [facility] [address] [place] [address] * Vitamin D 25 Hydroxy (03/31/2024 11:53 AM EST) Vitamin D, 25-OH, Total 81.5 30.0 - 100.0 ng/mL [facility] Comment: Vitamin D deficiency has been defined by the [place] of Medicine and an Endocrine Society practice guideline as a level of serum 25-OH vitamin D less than 20 ng/mL (1,2). The Endocrine Society went on to further define vitamin D insufficiency as a level between 21 and 29 ng/mL (2). 1. IOM ([place] of [place]). 2010. Dietary reference ?? intakes for calcium and D. [place]: The ?? National Academies Press. 2. Denys MF, Radha NC, Tab TAM, et al. ?? Evaluation, treatment, and prevention of vitamin D ?? deficiency: an Endocrine Society clinical practice ?? guideline. JCEM. 2010; 96(7):1911-30. 03/31/2024 11:5 3 AM EST 03/31/2024 Tomas Joseph MD LAB BLOOD ORDERABLES Final Re sult [facility] [address] [place] [address] * CBC and Differential (03/31/2024 11:53 AM EST) WBC 8.8 3.4 - 10.8 x10E3/uL [facility] RBC 4.83 4.14 - 5.80 x10E6/uL [facility] Hemoglobin 14.8 13.0 - 17.7 g/dL [facility] Hematocrit 44.7 37.5 - 51.0 % [facility] MCV 93 79 - 97 fL [facility] MCH 30.6 26.6 - 33.0 pg [facility] MCHC 33.1 31.5 - 35.7 g/dL [facility] RDW 13.4 11.6 - 15.4 % [facility] Platelets 279 150 - 450 x10E3/uL [facility] Neutrophils Relative 71 Not Estab. % [facility] Lymphocytes Relative 12 Not Estab. % [facility] Monocytes 10 Not Estab. % [facility] Eosinophils Relative 5 Not Estab. % [facility] Basophils Relative 1 Not Estab. % [facility] Neutrophils Absolute 6.3 1.4 - 7.0 x10E3/uL [facility] Lymphocytes Absolute 1.0 0.7 - 3.1 x10E3/uL [facility] Monocytes Absolute 0.9 0.1 - 0.9 x10E3/uL [facility] Eosinophils Absolute 0.4 0.0 - 0.4 x10E3/uL [facility] Basophils Absolute 0.1 0.0 - 0.2 x10E3/uL [facility] Immature Granulocytes 1 Not Estab. % [facility] Immature Grans (Absolute) 0.1 0.0 - 0.1 x10E3/uL [facility] 03/31/2024 11:5 3 AM EST 03/31/2024 Narrative [facility] - 04/01/2024 2:06 PM EST Specimen Comment: A courtesy copy of this report has been sent to [phone], [phone] Specimen Comment: [id number] us Tomas Joseph MD LAB BLOOD ORDERABLES Final Re sult Performing Organization Address [facility] Co de Phone Number [facility] [address] [place] [address] * (ABNORMAL) Uric Acid (03/31/2024 11:53 AM EST) Uric Acid 3.4(L) 3.8 - 8.4 mg/dL [facility] Comment:Therapeutic target f or gout patients: <6.0 03/31/2024 11:5 3 AM EST 03/31/2024 us Tomas Joseph MD LAB BLOOD ORDERABLES Final Re sult Performing Organization Address City/[facility] Co de Phone Number [facility] [address] [place] [address] * Phosphorus (03/31/2024 11:53 AM EST) Phosphorus 3.2 2.8 - 4.1 mg/dL [facility] 03/31/2024 11:5 3 AM EST 03/31/2024 us Tomas Joseph MD LAB BLOOD ORDERABLES Final Re sult Performing Organization Address City/[facility]/ZIP Co de Phone Number [email or web address] [address] [place] [address] * (ABNORMAL) PTH, Intact (03/31/2024 11:53 AM EST) PTH 74(H) 15 - 65 pg/mL [facility] 03/31/2024 11:5 3 AM EST 03/31/2024 Tomas Joseph MD LAB BLOOD ORDERABLES Final Re sult Performing Organization Address [facility]/ZIP Co de Phone Number [facility] [address] [place] [address] * Magnesium (03/31/2024 11:53 AM EST) Pathologist [facility] Magnesium 2.3 1.6 - 2.3 mg/dL [facility] 03/31/2024 11:5 3 AM EST 03/31/2024 Tomas Joseph MD LAB BLOOD ORDERABLES Final Re sult Performing Organization Address [facility] Co de Phone Number [email or web address] [address] [place] [address] * (ABNORMAL) Comprehensive Metabolic Panel (03/31/2024 11:53 AM EST) Pathologist [facility] Glucose 96 70 - 99 mg/dL [facility] BUN 22 8 - 27 mg/dL [facility] Creatinine 1.46(H) 0.76 - 1.27 mg/dL [facility] eGFR CKD-EPI CR 2020 47(L) >59 mL/min/1.7 3 [facility] BUN/Creatinine Ratio 15 10 - 24 [facility] Sodium 143 134 - 144 mmol/L [facility] Potassium 4.7 3.5 - 5.2 mmol/L [facility] Chloride 109(H) 96 - 106 mmol/L [facility] Bicarbonate (CO2) 14(L) 20 - 29 mmol/L [facility] Comment:Specimen quantity in sufficient for verification by repeat analysis. Calcium 11.4(H) 8.6 - 10.2 mg/dL [facility] Total Protein 7.0 6.0 - 8.5 g/dL [facility] Albumin 4.2 3.7 - 4.7 g/dL [facility] Globulin 2.8 1.5 - 4.5 g/dL [facility] Total Bilirubin 0.6 0.0 - 1.2 mg/dL [facility] Alkaline Phosphatase 99 44 - 121 IU/L [facility] AST (SGOT) 27 0 - 40 IU/L [facility] ALT (SGPT) 10 0 - 44 IU/L [facility] 03/31/2024 11:5 3 AM EST 03/31/2024 us Tomas Joseph MD LAB BLOOD ORDERABLES Final Re sult [facility] [address] [place] [address] from Last 3 Months Insurance Medicare [facility] Medicare [facility] Care Teams Scrap Crusher Relationship Specialty Start Date End Date Julio Villafuerte MD [address] [place] [address], [address] [place], [place] PCP - General Internal Medicine 04/07/24
--- OUTSIDE RECORDS SUMMARY | 2024-06-24 13:20 | XMS_ITS | Encounter Summary ---
Author Organization [facility] Address [address] [place] [phone] Care Team Providers Care Senior Financial Reporting Accountant Name Role Phone Demetria Dickinson MD Primary Care Provider Encounter Details Date Type Department Care Team (Late st Contact Info) Description 06/12/2024 Lab Requisition [facility] - Main Lab 299 [facility] [place] [address] Garima Haddad MD [address] [address] Urinary tract infection, site not specified Social [...] specified documented in this encounter Care Teams Senior Financial Reporting Accountant Relationship Specialty Start Date End Date Demetria Dickinson MD [address] [place] [address] PCP - General Internal Medicine 05/07/21 documented as of this encounter
--- OUTSIDE RECORDS SUMMARY | 2024-06-24 13:20 | XMS_ITS | Clinical Summary ---
Author Organization [address] Address [address] [place] [phone] Phone Care Team Providers Care Vertical Boring Mill Operator Name Role Phone Demetria Dickinson MD Primary [...] kidney disease) stage 3, GFR 30-59 ml/min ([facility] V24, [facility] V28) 04/05/2024 Dementia ([facility] V24, [facility] V28) 04/05/2024 Parkinson's disease ([facility] V24, [facility] V28) 0 04/05/2024 Seizure ([facility] V24, [facility] V28) 04/05/2024 Overview (04/05/2024): Per d/c summary/[facility] 05/18/2021. CHF (congestive heart failure) ([facility] V24, [facility] V28) 05/30/2021 Overview (04/05/2024): New onset, acute on chronic. [facility] admission 05/14/2021. Hypertensive urgency also documented. Anemia, unspecified 09/25/2020 Thrombocytosis 10/23/2018 Overview (04/05/2024): 09/25- mild Depression 09/01/2018 PVD (peripheral vascular disease) ([facility] V24) 05/14/2018 Nonallopathic lesion of sacral region 05/09/2014 Sprain of sacroiliac ligament 05/09/2014 Impaired fasting glucose 01/08/2014 Gout 08/24/2012 Atrial fibrillation ([facility] V24, [facility] V28) 0 08/06/2012 Overview [...] Department Care Team Description 06/12/2024 Lab Requisition [facility] - Main Lab [address] [facility] [place] [address] Garima Haddad MD Urinary tract infection, site not specified 06/10/2024 Lab Requisition [facility] - Main Lab [address] [place] [address] Garima Haddad MD Pneumonia, unspecified organism; Urinary tract infection, site not specified from Last 3 Months Immunizations Name Administration Dates Next Due Influenza trivalent, 0.5mL ( Fluzone High-dose) 65yo and older 12/18/2020,11/17/2018,01/02/2018,2016 Moderna SARS-CoV-2 COVID-19, mRNA, LNP-S, preservative free 05/28/2020,05/07/2020 Zoster recombinant (Shingrix ) 19yo and older 03/13/2020,01/19/2020 Surgical History Surgery Date Site/Laterality Comments APPENDECTOMY PROCEDURE: ME APPENDECTOMY TURP / TRANSURETHRAL INCISIO N / DRAINAGE PROSTATE PROCEDURE: HISTORICAL TURP CHOLECYSTECTOMY PROCEDURE: ME LAPAROSCOPY SURG CHOLECYSTECTOMY COLONOSCOPY PROCEDURE: HISTORICAL COLONOSCOPY; COMMENT: From problem list 07/31/2016: [place] 06/17. Tubular adenoma. Repeat 5 yrs. Pt declined colonoscopy 10/06/14. 07/24 colonoscopy (abnormal CT) neg. Repeat 10 yrs ESOPHAGOGASTRODUODENOSCOPY PROCEDURE: ME ESOPHAGOGASTRODUODENOSCOPY TRANSORAL DIAGNOSTIC; COMMENT: 07/24. Abnormal CT. [...] left leg weakness. Right field cut. Neurology ([place]) prophylactic Keppra. 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 Dysarthria and facial droop Depression 09/01/2018 DX:Depression PVD (peripheral vascular dis ease) ([facility] V24) 05/14/2018 DX:PVD (peripheral vascular disease) ([facility]) Sprain of sacroiliac ligament 05/09/2014 DX :Sprain of sacroiliac ligament Thrombocytosis 10/23/2018 DX:Thrombocytosi s; COMMENT: 09/25- mild Gout 08/24/2012 DX:Gout CKD (chronic kidney disease) stage 3, GFR 30-59 ml/min ([facility] V24, [facility] V28) DX:CKD (chronic kidney disea se) stage 3, GFR 30-59 ml/min ([facility]) Dementia ([facility] V24, [facility] V28) DX:Dementia ([facility]) Seizure ([facility] V24, [facility] V28) DX:Seizure ([facility]); COMMENT: Per d/c summary/[facility] 05/18/2021. Parkinson's disease ([facility] V24, [facility] V28) DX:Parkinson's disease ([facility]) Choking DX:Choking CHF (congestive heart failur e) ([facility] V24, [facility] V28) DX:CHF (congestive heart fa ilure) ([facility]) Family History Medical History Relation Name Comments [...] LAB HEMETOLOGY METHOD 06/10/2024 8:49 AM EDT [facility] MCHC 31.9(L) 32.0 - 37.0 g/dL LAB HEMETOLOGY METHOD 06/10/2024 8:49 AM EDT [facility] RDW 14.1 11.0 - 15.0 % LAB HEMETOLOGY METHOD 06/10/2024 8:49 AM EDT [facility] Platelets 350 130 - 400 K/mcL LAB HEMETOLOGY METHOD 06/10/2024 8:49 AM EDT [facility] MPV 10.3 7.0 - 11.0 FL LAB HEMETOLOGY METHOD 06/10/2024 8:49 AM EDT [facility] NRBC 0.0 <1.0 % LAB HEMETOLOGY METHOD 06/10/2024 8:49 AM EDT [facility] NRBC Absolute 0.00 <0.10 K/mcL LAB HEMETOLOGY METHOD 06/10/2024 8:49 AM EDT [facility] Blood Venous blood specimen / Unknown Venipuncture / Unknown 06/10/2024 6:45 AM EDT 06/10/2024 8:26 AM EDT us Garima Haddad MD LAB BLOOD ORDERABLES Fin al Result [facility] [address] [place] [address], * (ABNORMAL) Basic metabolic panel (06/10/2024 6:45 AM EDT) Sodium 145 133 - 145 mmol/L LAB CHEMISTRY METHOD 06/10/2024 9:15 AM EDT [facility] Potassium 4.3 3.5 - 5.5 mmol/L LAB CHEMISTRY METHOD 06/10/2024 9:15 AM EDT [facility] Chloride 110 96 - 110 mmol/L [...] 9:15 AM [facility] Creatinine 1.41(H) 0.70 - 1.30 mg/dL LAB CHEMISTRY METHOD 06/10/2024 9:15 AM [facility] eGFR 49(L) >=60 mL/min/1. 73m2 LAB CHEMISTRY METHOD 06/10/2024 9:15 AM [facility] Comment:Calculation based on the??Chronic Kidney Disease Epidemiology Collaboration (CKD-EPI) equation refit??without adjustment for race. BUN/Creatinine Ratio 19.1 LAB CHEMISTRY METHOD 06/10/2024 9:15 AM [facility] Calcium 8.8 8.5 - 10.5 mg/dL LAB CHEMISTRY METHOD 06/10/2024 9:15 AM [facility] Blood Venous blood specimen / Unknown Venipuncture / Unknown 06/10/2024 6:45 AM EDT 06/10/2024 8:26 AM EDT us Garima Haddad MD LAB BLOOD ORDERABLES Fin al Result [facility] [address] [place] [address], * (ABNORMAL) Lipid panel (09/25/2020) LDL/HDL Ratio 3 0 - 4 Triglycerides 112 0 - 150 mg/dL Cholesterol 91 0 - 200 mg/dL HDL 27(A) >=40 mg/dL LDL Cholesterol 42 0 - 100 mg/dL Blood Venous blood specimen / Unknown us Historical Provider LAB BLOOD ORDERABLES Latonya l Result from Last 3 Months or Most Recently Relevant to Health Maintenance Insurance MEDICARE [facility] Care Teams Vertical Boring Mill Operator Relationship Specialty Start Date End Date Demetria Dickinson MD [address] [place] [id number] PCP - General Internal Medicine 05/07/21
--- OUTSIDE RECORDS SUMMARY | 2024-06-24 13:20 | XMS_ITS | Encounter Summary ---
Author Organization [facility] Address [address] [place] [phone] Care Team Providers Care Quilt Sewer Name Role Phone Demetria Dickinson MD Primary Care Provider Encounter Details Date Type Department Care Team (Late st Contact Info) Description 06/10/2024 Lab Requisition [facility] - Main Lab [address] [facility] [place] [address] Garima Haddad MD [address] [address] Pneumonia, unspecified organism; Urinary tract infection, site [...] mmol/L LAB CHEMISTRY METHOD 06/10/2024 9:15 AM [facility] Potassium 4.3 3.5 - 5.5 mmol/L LAB CHEMISTRY METHOD 06/10/2024 9:15 AM [facility] Chloride 110 96 - 110 mmol/L LAB CHEMISTRY METHOD 06/10/2024 9:15 AM [facility] CO2 29 21 - 32 mmol/L LAB CHEMISTRY METHOD 06/10/2024 9:15 AM [facility] Anion Gap 6 3 - 11 LAB CHEMISTRY METHOD 06/10/2024 9:15 AM [facility] Glucose 83 70 - 100 mg/dL LAB CHEMISTRY METHOD 06/10/2024 9:15 AM [facility] BUN 27(H) 5 - 25 mg/dL LAB CHEMISTRY METHOD 06/10/2024 9:15 AM [facility] Creatinine 1.41(H) 0.70 - 1.30 mg/dL LAB CHEMISTRY METHOD 06/10/2024 9:15 AM [facility] eGFR 49(L) >=60 mL/min/1. 73m2 LAB CHEMISTRY METHOD 06/10/2024 9:15 AM [facility] Comment:Calculation based on the??Chronic Kidney Disease Epidemiology Collaboration (CKD-EPI) equation refit??without adjustment for race. BUN/Creatinine Ratio 19.1 LAB CHEMISTRY METHOD 06/10/2024 9:15 AM [facility] Calcium 8.8 8.5 - 10.5 mg/dL LAB CHEMISTRY METHOD 06/10/2024 9:15 AM [facility] Blood Venous blood specimen / Unknown Venipuncture / Unknown 06/10/2024 6:45 AM EDT 06/10/2024 8:26 AM EDT Garima Haddad MD LAB BLOOD ORDERABLES Fin al Result [facility] [address] [place] [address], * (ABNORMAL) Complete blood count (06/10/2024 6:45 AM EDT) WBC 9.7 4.8 - 10.8 K/mcL LAB HEMETOLOGY METHOD 06/10/2024 8:49 AM EDT [facility] RBC 3.90(L) 4.50 - 5.50 M/mcL LAB HEMETOLOGY METHOD 06/10/2024 8:49 AM EDT [facility] Hemoglobin 12.0(L) 13.5 - 17.5 g/dL LAB [facility] Hematocrit 37.6(L) 42.0 - 54.0 % LAB HEMETOLOGY METHOD 06/10/2024 8:49 AM EDT [facility] MCV 95.9 79.0 - 98.0 FL LAB HEMETOLOGY METHOD 06/10/2024 8:49 AM EDT [facility] MCH 30.6 27.0 - 32.0 pcg LAB HEMETOLOGY METHOD 06/10/2024 8:49 AM EDT [facility] MCHC 31.9(L) 32.0 - 37.0 g/dL LAB HEMETOLOGY METHOD 06/10/2024 8:49 AM EDT [facility] RDW 14.1 11.0 - 15.0 % LAB HEMETOLOGY METHOD 06/10/2024 8:49 AM EDT [facility] Platelets 350 130 - 400 K/mcL LAB [facility]OLOGY [facility] MPV 10.3 7.0 - 11.0 FL LAB HEMETOLOGY METHOD 06/10/2024 8:49 AM EDT [facility] NRBC 0.0 <1.0 % LAB HEMETOLOGY METHOD 06/10/2024 8:49 AM EDT [facility] NRBC Absolute 0.00 <0.10 K/mcL LAB HEMETOLOGY METHOD 06/10/2024 8:49 AM EDT [facility] Blood Venous blood specimen / Unknown Venipuncture / Unknown 06/10/2024 6:45 AM EDT 06/10/2024 8:26 AM EDT us Garima Haddad MD LAB BLOOD ORDERABLES Fin al Result [facility] [address] [place] [address], documented in this encounter Visit Diagnoses Diagnosis Pneumonia, unspecified organism Urinary tract infection, site not specified documented in this encounter Care Teams Quilt Sewer Relationship Specialty Start Date End Date Demetria Dickinson MD [address] [place] [phone] PCP - General Internal Medicine 05/07/21 documented as of this encounter
== END 2024-06-24 10:55 | disposition home or self-care (01) ==
LOC: HO.MMNH1L 10:54
PROVIDERS: Visit Provider Nurse Practitioner
DX: N39.0 Urinary tract infection, site not specified (principal)
CPT/HCPCS: 36415; 80053; 81001; 85025; 87040; 87086; 87088; 87186